=== PATIENT | female | born 1940 | race Caucasian/White ===

== ENCOUNTER 2017-09-13 09:59 | Outpatient (CLI) | payer MEDICARE, BC ==
--- NOTE | 2017-09-13 11:59 | CT ---
CT BRAIN WITHOUT CONTRAST FOLLOWED BY CONTRAST ENHANCED CTA BRAIN WITH 2D AND 3D RECONSTRUCTION IMAGE S PERFORMED ON AN INDEPENDENT 3D WORK STATION: FINDINGS: Noncontrast enhanced CT images of the brain demonstrates some deep white matter ischemic changes. CTA images compared to previous exam from 12-19-14. The right and left internal carotid arteries are unremarkable. There is tortuosity seen in the cavern ous portions of the ICA bilaterally which is stable. 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 There is a large right posterior communicatin g artery which provides flow to the right posterior circulation. The left posterior communicating art jj is difficult to visualize. The posterior circulation on the left appears to be predominately via the basilar artery. No other intracranial aneurysm is seen. ROGER and MCA vessels are unremarkable. The patient has had a previous right craniotomy defect. IMPRESSION: Stable right supraclinoid ICA aneurysm. No other significant abnormality seen. POS: EMIL
== END 2017-09-13 10:00 | disposition home or self-care (01) ==
LOC: TBSIIMAG 09:59
PROVIDERS: ATTEND Neurological Surgery
DX: I72.0 Aneurysm of carotid artery (principal)
CPT/HCPCS: 70496; 82565

== ENCOUNTER 2017-12-28 14:48 | Outpatient (CLI) | payer MEDICARE, BC ==
--- NOTE | 2017-12-28 16:19 | RAD ---
CHEST 2 VIEWS: History Preop. COMPARISON: None. FINDINGS: Lungs are clear. No pneumothorax or effusion. Cardiac silhouette and mediastinal contours within no rmal limits. No acute osseous abnormality. IMPRESSION: No acute intrathoracic abnormality. POS: SHALINIH
[2017-12-28 16:38] LABS: #Eosinphils 0.1 thou/uL (0.0-0.7); #Lymphocytes 2.1 thou/uL (1.20-3.40); #Monocytes 0.5 thou/uL (0.11-0.59); #Neutrophils 2.6 thou/uL (1.40-6.50); %Basophils 0.6 % (0.0-1.0); %Eosinophils 2.5 % (0.0-10.0); %Lymphocytes 38.9 % (21.0-51.0); %Monocytes 9.4 % (0.0-10.0); %Neutrophils 48.6 % (42.0-75.0); Hemoglobin 13.5 g/dL (12.0-16.0); Mean Corpuscular HGB CONC 35.2 g/dL (32.0-36.0); Mean Corpuscular Hemoglobin 32.7 pg (27.0-31.0); Mean Corpuscular Volume 92.9 fL (78.0-98.0); Mean Platelet Volume 7.1 fL (7.4-10.4); Platelet Count 180 thou/uL (130-400); RBC Distribution Width 12.2 % (11.5-14.5); Red Blood Cell (RBC) Count 4.13 mill/uL (4.20-5.40); White Blood Cell (WBC) Count 5.4 thou/uL (4.8-10.8)
[2017-12-28 16:57] LABS: Anion Gap 15 mmol/L (10-20); BUN (Urea Nitrogen) 19 mg/dL (9.8-20.1); Calc. Creatinine Clearance 0 mL/min (70-130); Calcium 9.2 mg/dL (7.8-10.44); Carbon Dioxide 24 mmol/L (23-31); Chloride 105 mmol/L (98-107); Estimated GFR-MDRD 51; Glucose 95 mg/dL (83-110); Sodium 140 mmol/L (136-145)
== END 2017-12-28 14:49 | disposition home or self-care (01) ==
LOC: LABBT 14:48
PROVIDERS: ATTEND Orthopaedic Surgery Hand Surgery
DX: Z01.812 Encounter for preprocedural laboratory examination (principal); G56.02 Carpal tunnel syndrome, left upper limb
CPT/HCPCS: 71046; 80048; 85025

== ENCOUNTER → 2018-01-03 | Day surgery (SDC) | payer MEDICARE, BC ==
[2017-12-28 15:05] VITALS: BMI 19.5
[~2018-01-03] MED LIST: Bacitracin Zinc Ointment 30 gm TUBE ONE; Betamet Acet/Betamet Na Ph 30 MG/5 ML VIAL ONE; Bupivacaine PF 0.5% 30 ML VIAL ONE; CEFAZOLIN/Water 2 GM/20 ML SYRINGE ONE; Fentanyl 100 MCG/2 ML VIAL ONE; Ketorolac Tromethamine 30 MG/ML VIAL ONE; Lidocaine 1% PF 5 ML VIAL ONE; PROPOFOL 200 MG/20 ML VIAL ONE; Sodium Chloride 0.9% 10 ML ONE; ePHEDrine/0.9% NaCl/PF SYRINGE 50 mg/10 ml ONE
--- NOTE | 2018-01-03 09:08 | OP ---
DATE OF PROCEDURE: 01/03/2018 PREOPERATIVE DIAGNOSIS: Left carpal tunnel syndrome. POSTOPERATIVE DIAGNOSIS: Left carpal tunnel syndrome. PROCEDURE: Left carpal tunnel release. SURGEON: Dr. Luis Fernando Workman ESTIMATED BLOOD LOSS: 5 mL. TOURNIQUET TIME: 15 minutes. FINDINGS: Tight transverse carpal ligament with stippling of the nerve. INDICATIONS: The patient with the persistent numbness between 9 and 12 months, positive exam and paula ctrodiagnostic testing with failed conservative treatment for carpal tunnel syndrome, left side. DESCRIPTION OF PROCEDURE: After successful propofol with a 10 mL Marcaine block 0.5%, no epinephrine , which was given before prep and drape, the limb was prepped and draped. Timeout done appropriately , limb exsanguinated and the tourniquet inflated to 250 mmHg pressure. She had the incision outlined as 2.5 cm long in line with the ring finger. A medial lateral as far distal to Orozco's cardinal li ne for approximately 5 mm distal to the volar wrist flexion crease. Incision was developed along this line through skin and subcutaneous tissue. We dissected down, foun d the palmaris longus and just ulnar to this entered the transverse carpal ligament. From the mid po rtion distally we released the first undraped ____ with a [place] blade and tenotomy scissor. Same technique was then used from the mid portion proximally. We visualized transcarpal ligament and released it until there was no evidence of compression. Inspected the median nerve, it was intact w ith no evidence of loss of continuity and no flexion tenosynovitis and there was stippling over an 8 mm area with early hourglass compression median nerve. The motor branch in the distal sensory branch es were intact. We placed 3 mL of Celestone in the nerve via drip technique, deflated the tourniquet , closed the incision with excellent hemostasis and an interrupted 4-0 nylon mattress pattern. The p atient left the operating room without evidence of anesthetic or operative complications.
== END ==
LOC: SDC 06:00
PROVIDERS: ATTEND Orthopaedic Surgery Hand Surgery
PROC: 01N50ZZ Release Median Nerve, Open Approach (ICD-10-PCS; principal; 2018-01-03)
DX: G56.03 Carpal tunnel syndrome, bilateral upper limbs (principal); I48.91 Unspecified atrial fibrillation; I10 Essential (primary) hypertension; F32.9 Major depressive disorder, single episode, unspecified; E78.00 Pure hypercholesterolemia, unspecified; M48.02 Spinal stenosis, cervical region; M19.041 Primary osteoarthritis, right hand; M19.042 Primary osteoarthritis, left hand; D64.9 Anemia, unspecified; Z79.01 Long term (current) use of anticoagulants; Z79.899 Other long term (current) drug therapy; Z88.1 Allergy status to other antibiotic agents; Z88.8 Allergy status to other drugs, medicaments and biological substances
CPT/HCPCS: A4216; J0702; J1885; J3010; J3490; S0020

== ENCOUNTER 2018-02-07 09:16 | Outpatient (CLI) | payer MEDICARE, BC ==
--- NOTE | 2018-02-07 11:29 | ULT ---
ULTRASOUND ABDOMEN COMPLETE HISTORY: Epigastric pain. COMPARISON: 06-07-07 TECHNIQUE: Conti-scale ultrasound evaluation of the liver, gallbladder, spleen, pancreas, common bile duct, kidne ys, abdominal aorta, and inferior vena cava (IVC). FINDINGS: There is a focus of nondependent subcentimeter echogenicity of the gallbladder which may relate to an adherent stone versus polyp. This measures 4 mm. No focal hepatic lesion or ascites. Common duct is normal in caliber measuring 3 mm. Spleen and kidne ys are unremarkable. Otherwise, no acute process is seen. IMPRESSION: Small hyperechoic focus, non-dependently located within the gallbladder which could either relate to adherent stone versus small polyp. Consider a 6 month follow up gallbladder ultrasound for continued assessment. POS: EMIL
== END 2018-02-07 09:17 | disposition home or self-care (01) ==
LOC: SCSULT 09:16
PROVIDERS: ATTEND Internal Medicine Gastroenterology
DX: R10.13 Epigastric pain (principal); K52.839 Microscopic colitis, unspecified; K21.9 Gastro-esophageal reflux disease without esophagitis; R93.2 Abnormal findings on diagnostic imaging of liver and biliary tract
CPT/HCPCS: 76700

== ENCOUNTER 2019-06-04 07:46 | Outpatient (CLI) | payer MEDICARE, BC ==
--- NOTE | 2019-06-04 15:57 | CT ---
CT OF THE ABDOMEN AND PELVIS WITH IV CONTRAST: INDICATION: History of nausea, vomiting, weight loss, and a history of pelvic pain. COMPARISON: Prior abdominal ultrasound dated 02/07/2018. FINDINGS: There is a 4 mm pulmonary nodule within the right lower lobe seen on image 9 of series 2. The left l linus base is clear. There is a tiny cyst within segment 8 of the right hepatic lobe. Gallbladder is normal-appearing. There has been interval development of a mild dilatation of the common bile duct now measuring up to 9 mm. There is also mild dilatation of the main pancreatic duct measuring up to 5 mm at the level of the pancreatic head. The duct remains dilated through the level of the tail. No definite focal vigil creatic mass lesion is grossly evident. No enlarged lymph nodes are evident. There are moderate gamal cifications involving the abdominopelvic vasculature. Adrenal glands and spleen appear within normal limits. Kidneys are normal-appearing. No free fluid or enlarged lymph nodes are evident. There is a mild amount of retained stool within the colon. There are a few scattered diverticula inv olving the colon without evidence of active diverticulitis. The appendix is not definitely seen. Th ere are 3-4 loops of small bowel within the lower central abdomen that demonstrate some mild wall thi ckening without overt dilatation. Some of this may be related to under distention. A mild enteritis in this location cannot be entirely excluded. No free fluid is evident. The reproductive structures are surgically absent. No acute osseous abnormality is evident. There is grade I anterolisthesis of L4 on L5. IMPRESSION: 1. Interval development of common bile duct and main pancreatic ductal dilatation. This is nonspeci fic and of unknown etiology. Further evaluation with MRCP would be helpful for additional characteri zation. 2. 4 mm right lower lobe pulmonary nodule. 3. Small right hepatic lobe cyst. 4. Mild suggestive wall thickening involving loops of small bowel with enlarged central abdomen, martita e of which may be related to under distention. A component of enteritis cannot be excluded. 5. Other chronic findings as above. POS: CET
== END 2019-06-04 07:47 | disposition home or self-care (01) ==
LOC: SCSCT 07:46
PROVIDERS: ATTEND Physician Assistant Medical
DX: K52.9 Noninfective gastroenteritis and colitis, unspecified (principal); R11.2 Nausea with vomiting, unspecified; R63.4 Abnormal weight loss; R91.1 Solitary pulmonary nodule; K76.89 Other specified diseases of liver; K86.89 Other specified diseases of pancreas; M43.16 Spondylolisthesis, lumbar region; K59.00 Constipation, unspecified; I70.90 Unspecified atherosclerosis; Z86.2 Personal history of diseases of the blood and blood-forming organs and certain disorders involving the immune mechanism; Z90.79 Acquired absence of other genital organ(s)
CPT/HCPCS: 74177; 82565

== ENCOUNTER 2021-03-04 10:10 | Outpatient (CLI) | payer MEDICARE, BC | END 2021-03-04 10:11 | disposition home or self-care (01) | LOC: BICMAMMO 10:10 | PROVIDERS: ATTEND Internal Medicine Rheumatology | DX: M81.0 Age-related osteoporosis without current pathological fracture (principal); M85.851 Other specified disorders of bone density and structure, right thigh; M85.852 Other specified disorders of bone density and structure, left thigh | CPT/HCPCS: 77080 ==

== ENCOUNTER 2021-04-01 08:06 | Outpatient (CLI) | payer MEDICARE, BC | END 2021-04-01 08:07 | disposition home or self-care (01) | LOC: SCSMRI 08:06 | PROVIDERS: ATTEND Orthopaedic Surgery | DX: S46.812A Strain of other muscles, fascia and tendons at shoulder and upper arm level, left arm, initial encounter (principal); M25.412 Effusion, left shoulder ==

== ENCOUNTER 2021-05-25 09:58 | Outpatient (CLI) | payer MEDICARE, BC ==
[2021-05-25 10:53] LABS: Hemoglobin 14.3 g/dL (12.0-15.5); Mean Corpuscular HGB CONC 32.7 g/dL (32.0-36.0); Mean Corpuscular Hemoglobin 31.2 pg (27.0-33.0); Mean Corpuscular Volume 95.2 fl (81.6-98.3); Mean Platelet Volume 9.7 fl (7.4-10.4); Platelet Count 223 10x3/uL (150-450); RBC Distribution Width 13.8 % (11.5-14.5); Red Blood Cell (RBC) Count 4.59 10x6/uL (3.90-5.03); White Blood Cell (WBC) Count 6.7 10x3/uL (3.5-10.5)
[2021-05-25 11:00] LABS: Anion Gap 12 mmol/L (10-20); BUN (Urea Nitrogen) 21 mg/dL (9.8-20.1); Calc. Creatinine Clearance 0 mL/min (70-130); Calcium 9.5 mg/dL (7.8-10.44); Carbon Dioxide 28 mmol/L (23-31); Chloride 104 mmol/L (98-107); Glucose 83 mg/dL (83-110); Potassium 4.6 mmol/L (3.5-5.1); Sodium 139 mmol/L (136-145)
[2021-05-25 11:02] LABS: Prothrombin Time 10.8 sec (9.5-12.1)
[2021-05-26 11:50] LABS: SARS-CoV-2 PCR by NAA Not Detected (NotDetected)
== END 2021-05-25 09:59 | disposition home or self-care (01) ==
LOC: LABBT 09:58
PROVIDERS: ATTEND Internal Medicine Cardiovascular Disease
DX: Z01.812 Encounter for preprocedural laboratory examination (principal); I48.0 Paroxysmal atrial fibrillation; Z20.822 Contact with and (suspected) exposure to COVID-19
CPT/HCPCS: 80048; 85027; 85610; U0003; U0005

== ENCOUNTER 2021-05-28 06:08 | Day surgery (SDC) | payer MEDICARE, BC ==
[2021-05-19 10:52] VITALS: BMI 19.5
[2021-05-28] MEDS ORDERED: Heparin 10,000 UNITS/ 10 ML VIAL ONE ×2 (06:22→06:40)
[2021-05-28] MEDS ORDERED: Isoproterenol 0.2 MG/1 ML AMP ONE (06:40)
[2021-05-28] MEDS ORDERED: Heparin 25,000 units/D5W 500 ML ONE (06:40)
[2021-05-28] MEDS ORDERED: Protamine Sulfate 50 MG/5 ML VIAL ONE (06:40)
[2021-05-28] MEDS ORDERED: Fentanyl 100 MCG/2 ML VIAL ONE (06:49)
[2021-05-28] MEDS ORDERED: Midazolam HCl 2 mg/2 ml Vial ONE (06:49)
[2021-05-28] MEDS ORDERED: Dexamethasone 20 MG/5 ML VIAL ONE (07:24)
[2021-05-28] MEDS ORDERED: Rocuronium Bromide 10 MG/ML (10ML VIAL) ONE (07:24)
[2021-05-28] MEDS ORDERED: Ondansetron PF 4 MG/2 ML Vial ONE (07:24)
[2021-05-28] MEDS ORDERED: Lidocaine 1% PF 5 ML VIAL ONE (07:24)
[2021-05-28] MEDS ORDERED: PROPOFOL 200 MG/20 ML VIAL ONE (07:24)
[2021-05-28] MEDS ORDERED: ePHEDrine 50 MG/ML VIAL ONE (07:24)
[2021-05-28] MEDS ORDERED: PHENYLEPHRINE-NS 100 MCG/ML 10 ML SYRINGE ONE (07:24)
[2021-05-28] MEDS ORDERED: Cepastat Lozenges 1 LOZ PO SCH (14:15)
== END 2021-05-28 16:05 | disposition home or self-care (01) ==
LOC: CCL 06:08
PROVIDERS: ATTEND Internal Medicine Cardiovascular Disease
PROC: B246ZZ4 Ultrasonography of Right and Left Heart, Transesophageal (ICD-10-PCS; principal; 2021-05-28)
PROC: B244ZZZ Ultrasonography of Right Heart (ICD-10-PCS; 2021-05-28)
PROC: 5A2204Z Restoration of Cardiac Rhythm, Single (ICD-10-PCS; 2021-05-28)
PROC: 02583ZZ Destruction of Conduction Mechanism, Percutaneous Approach (ICD-10-PCS; 2021-05-28)
PROC: 02K83ZZ Map Conduction Mechanism, Percutaneous Approach (ICD-10-PCS; 2021-05-28)
DX: I48.0 Paroxysmal atrial fibrillation (principal); I48.3 Typical atrial flutter; I11.9 Hypertensive heart disease without heart failure; I70.0 Atherosclerosis of aorta; I25.10 Atherosclerotic heart disease of native coronary artery without angina pectoris; I25.2 Old myocardial infarction; E78.5 Hyperlipidemia, unspecified; M81.0 Age-related osteoporosis without current pathological fracture; I34.0 Nonrheumatic mitral (valve) insufficiency; Z86.73 Personal history of transient ischemic attack (TIA), and cerebral infarction without residual deficits; Z87.891 Personal history of nicotine dependence; Z79.01 Long term (current) use of anticoagulants; Z79.899 Other long term (current) drug therapy; Z88.1 Allergy status to other antibiotic agents; Z88.8 Allergy status to other drugs, medicaments and biological substances
CPT/HCPCS: 85347; 93005; 93312; 93613; 93655; 93656; 93662; C1732; C1759; C1776; C1894; C2630; J1100; J1644; J2250; J2405; J2704; J2720; J3010; J3490